=== PATIENT | male | born 1970 | race Caucasian/White ===

== ENCOUNTER → 2024-02-27 15:55 | Outpatient (REF) | payer OTHER, SELFPAY | LOC: PAVMRI 15:55 | PROVIDERS: ATTENDING PHYSICIAN Pain Medicine Interventional Pain Medicine; FAMILY PHYSICIAN Internal Medicine | DX: M54.16 Radiculopathy, lumbar region (principal); M16.12 Unilateral primary osteoarthritis, left hip | CPT/HCPCS: 72148; 73721 ==

== ENCOUNTER → 2024-12-27 14:46 | Outpatient (REF) | payer OTHER, SELFPAY | LOC: EMG 14:46 | PROVIDERS: ATTENDING PHYSICIAN Orthopaedic Surgery; FAMILY PHYSICIAN Internal Medicine | DX: R20.0 Anesthesia of skin (principal) | CPT/HCPCS: 95886; 95909 ==